=== PATIENT | male | born 1945 | race Caucasian/White ===

== ENCOUNTER → 2016-08-20 | Outpatient (CLI) | payer OTHER, MEDICARE | LOC: BHCLAF 10:45 | PROVIDERS: ATTEND Internal Medicine Cardiovascular Disease | DX: G45.9 Transient cerebral ischemic attack, unspecified (principal) | CPT/HCPCS: 93306-PO ==

== ENCOUNTER 2018-06-18 02:55 | Emergency (ER) | payer OTHER, MEDICARE ==
--- NOTE | 2018-06-18 03:02 | EDPHY ---
H & P Stated Complaint: Chest Pain Time Seen by Provider: 06/18/18 03:02 HPI/ROS: HPI CHIEF COMPLAINT: Chest pressure HISTORY OF PRESENT ILLNESS: 73-year-old male, presents emergency room chest pressure. Patient has a history of osteoarthritis, hypothyroidism, abdominal aortic aneurysm, presents emergency room with chest pressure. Mainly left side does not radiate anywhere. Feels very anxious about this. Denies pleuritic pain. States he had a little bit of this discomfort around 4:00 p.m. Today but that went away he went to bed around 11:00 p.m. Tonight and then woke up around 2:00 a.m. With worsening left-sided chest pressure. This caused him great anxiety and decided come the emergency room by private vehicle company by his . Still has the pressure in left side of his chest. Denies shortness of breath, denies pleuritic pain, denies nausea or vomiting. Also complains of upper back discomfort. Tightness. Did state that he lifted heavy boxes and put away for storage today. Unclear if he injured himself. Past Medical History: Osteoarthritis, AAA, dehydration, hypothyroidism Past Surgical History: Multiple orthopedic surgeries. Social History: Denies drugs alcohol tobacco. Family History: Noncontributory ROS REVIEW OF SYSTEMS: 10 Systems were reviewed and negative with the exception of the elements mentioned in the history of present illness. Exam Constitutional triage nursing summary reviewed, vital signs reviewed, awake/ alert. Eyes normal conjunctivae and sclera, EOMI, PERRLA. HENT normal inspection, atraumatic, moist mucus membranes, no epistaxis, neck supple/ no meningismus, no raccoon eyes. Respiratory clear to auscultation bilaterally, normal breath sounds, no respiratory distress, no wheezing. Cardiovascular rate normal, regular rhythm, no murmur, no edema, distal pulses normal. Gastrointestinal soft, non-tender, no rebound, no guarding, normal bowel sounds, no distension, no pulsatile mass. Genitourinary no CVA tenderness. Musculoskeletal no midline vertebral tenderness, full range of motion, no calf swelling, no tenderness of extremities, no meningismus, good pulses, neurovascularly intact. Skin pink, warm, & dry, no rash, skin atraumatic. Neurologic awake, alert and oriented x 3, AAOx3, moves all 4 extremities equally, motor intact, sensory intact, CN II-XII intact, normal cerebellar, normal vision, normal speech. Psychiatric normal mood/affect. Heme/Lymph/Immune no lymphadenopathy. Differential diagnosis includes but is not limited to: ACS, atypical chest pain , pneumothorax, pneumonia, pulmonary embolism, aortic dissection, congestive heart failure, tumor, musculoskeletal pain, esophageal pain, GERD, peptic ulcer disease, pancreatitis Medical Decision Making: Plan for this patient IV establishment, full copy machine operator obtain EKG, rule out acute coronary syndrome, troponin, electrolytes, given his AAA history will proceed with CT angiogram chest. Re-evaluation: EKG interpretation by me on record in [facility] system. Impression time of EKG 3:06 a.m., sinus rhythm rate of 80 without any signs of acute ischemia no ST elevation no ST depression. Full-dose aspirin given. CT angiogram of the chest fax me by direct Radiology at 4:[address] angiogram of the chest for pulmonary embolism. EKG is stable from previous EKG dated 08/20/[address] angiogram chest reviewed negative for PE Plan for admission the hospital for chest pain evaluation Patient is chest pain-free at this time I have consult the hospitalist service Dr. Goodwin, agrees to admit. patient agrees for admission, further eval. Source: Patient - Personal History Current Tetanus/Diphtheria Vaccine: Yes Current Tetanus Diphtheria and Acellular Pertussis (TDAP): Yes - Medical/Surgical History Hx Asthma: No Hx Chronic Respiratory Disease: No Hx Diabetes: No Hx Cardiac Disease: No Hx Renal Disease: No Hx Cirrhosis: No Hx Alcoholism: No Hx HIV/AIDS: No Hx Splenectomy or Spleen Trauma: No Other PMH: Hypothyroid, BPH, arthritis,AAA; 6 broken ribs;tonsilectomy;deviated septum;syncopal - Social History Smoking Status: Never smoked Constitutional: Initial Vital Signs Temperature (C) 36.5 C 06/18/18 02:58 Heart Rate 87 06/18/18 02:58 Respiratory Rate 20 06/18/18 02:58 Blood Pressure 147/96 H 06/18/18 02:58 O2 Sat (%) 96 06/18/18 02:58 O2 Delivery Mode Room Air Allergies/Adverse Reactions: No Known Allergies Allergy (Verified 12/30/14 10:37) Home Medications: Medication Instructions Recorded Finasteride [Proscar 5 MG (*)] 5 mg PO DAILY 08/17/15 Levothyroxine [Synthroid 25 mcg 25 mcg PO DAILY06 08/17/15 (*)] Omeprazole 20 mg PO DAILY 08/17/15 Medical Decision Making - Data Points Laboratory Results: Laboratory Results 06/18/18 03:05 06/18/18 03:05 Medications Given: Discontinued Medications Aspirin (Aspirin) 325 mg PO EDNOW ONE Stop: 06/18/18 03:13 Last Admin: 06/18/18 03:15 Dose: 325 mg Sodium Chloride (Ns) 1,000 mls @ 0 mls/hr IV EDNOW ONE; Wide Open PRN Reason: Protocol Stop: 06/18/18 03:04 Last Admin: 06/18/18 03:15 Dose: 1,000 mls Point of Care Test Results: Chemistry 06/18/18 03:08 POC Troponin I 0.00 ng/mL ng/mL (0.00-0.08) Departure - Departure Disposition: [facility] Inpatient Acute Clinical Impression: Chest pain Qualifiers: Chest pain type: unspecified Qualified Code(s): R07.9 - Chest pain, unspecified Condition: Fair
[2018-06-18] MEDS ORDERED: NS 1,000 ML IV ONE (03:03)
[2018-06-18] MEDS ORDERED: ASPIRIN 81 MG CHEWABLE TAB ONE (03:09)
[2018-06-18] MEDS ORDERED: ASPIRIN 325 MG TAB PO ONE (03:12)
[2018-06-18 03:17] LABS: PLATELET COUNT 268 10^3/uL (150-400)
[2018-06-18 03:25] LABS: INR 0.98 (0.83-1.16); PROTIME(PATIENT) 13.2 SEC (12.0-15.0)
[2018-06-18] MEDS ORDERED: IOHEXOL 300 mgI/ML (OMNIPAQUE) 150 ML BTL IV ONE (03:39)
[2018-06-18] MEDS ORDERED: ONDANSETRON DISINTEGRATING 4 MG TAB PO PRN (05:17)
[2018-06-18] MEDS ORDERED: ACETAMINOPHEN 325 MG TAB PO PRN (05:17)
[2018-06-18] MEDS ORDERED: HYDROCODONE/APAP 5/325 TAB PO PRN (05:17)
[2018-06-18] MEDS ORDERED: ONDANSETRON 4 MG/2 ML VIAL IVP PRN (05:17)
[2018-06-18] MEDS ORDERED: NITROGLYCERIN 0.4 MG BTL SL PRN (05:19)
[2018-06-18] MEDS ORDERED: KETOROLAC 15 MG/1 ML SDV IVP ONE (06:24)
[2018-06-18] MEDS ORDERED: KETOROLAC 15 MG/1 ML SDV IVP PRN (06:25)
[2018-06-18] MEDS ORDERED: METHYL SALICYLATE/MENTHOL OINTMENT TP PRN (06:26)
--- NOTE | 2018-06-18 06:35 | PDGENHP ---
History and Physical - Chief Complaint Left chest pain and neck spasm - History of Present Illness Source-patient provides history appears reliable. EMR was reviewed and case discussed with ED provider. HPI-this is a very pleasant 73-year-old gentleman with a past medical history significant for hypothyroidism, BPH, OA, AAA who presents emergency department early this morning for persistent left chest wall pain. Patient reports that approximately 11:00 p.m. He woke up from sleep because he could not get comfortable. He complained of a chest pain and pressure type sensation in is the left medial chest and moved up just below his clavicle. Pain did move around worse with any kind of movement or shift and position. Patient denies any associated diaphoresis. With the persistence and his pain he did eventually develop some nausea without any vomiting just prior to arrival to the ED. Patient was also complaining of increasing neck pain and spasms posterior neck which he has been dealing with for many months now. He has been seeing a massage therapist and recently had a 0.5 hr massage as session but did help this. He denies any pain radiating down to his arm. He denies any fevers or chills. Earlier in the day patient reports that he had been putting back is artificial [place] tree lifting a some of the boxes upwards of 30 lb. Patient does not feel that this is anything increasingly strenuous. Patient denies any family history of [place] or early cardiac . He states that he underwent a cardiac catheterization toward the end of summer beginning of fall 2017 which was negative. He subsequently continued to have dyspnea on exertion particularly with elevation hiking and was referred subsequently to a product development coordinator. Patient reports that he did not developed any shortness of breath during this event but he was increasingly anxious and concerned about his symptoms and felt like he was hyperventilating a little. History Information - Allergies/Home Medication List Allergies/Adverse Reactions: No Known Allergies Allergy (Verified 12/30/14 10:37) Home Medications: Finasteride [Proscar 5 MG (*)] 5 mg PO DAILY 08/17/15 [Last Taken 08/17/15] Levothyroxine [Synthroid 25 mcg (*)] 25 mcg PO DAILY06 08/17/15 [Last Taken 07/29] Omeprazole 20 mg PO DAILY 08/17/15 [Last Taken 08/17/15] I have personally reviewed and updated: family history, medical history, social history, surgical history - Past Medical History Additional medical history: Hypothyroidism, BPH, osteoarthritis, chronic neck spasm, AAA, history rib fracture, syncope - Surgical History Additional surgical history: Tonsillectomy adenoidectomy, multiple orthopedic surgeries, 01/02/2018 patient underwent cardiac catheterization which he reports was normal. - Family History Additional family history: Negative for cardiac disease or early cardiac . - Social History Smoking Status: Never smoked Alcohol Use: None Drug Use: None Additional social history: Patient is lives with his . His daughter is a local psychiatrist. Cor status-full. Review of Systems Review of Systems: ROS: 10pt was reviewed & negative except for what was stated in HPI & below Constitutional: Reports: no symptoms EENMT: Reports: no symptoms Cardiac: Reports: chest pain. Denies: edema, lightheadedness, palpitations Respiratory: Reports: no symptoms Gastrointestinal: Reports: nausea. Denies: vomitting, abdominal pain Genitourinary: Reports: no symptoms Muscolosketal: Reports: muscle pain, muscle stiffness, neck pain Skin: Reports: no symptoms Neurological: Reports: no symptoms Hematologic/Lymphatic: Reports: no symptoms Physical Exam Physical Exam: Selected Entries 06/18/18 02:58 Blood Pressure Automatic Method Heart Rate 87 Respiratory 20 Rate O2 Sat (%) 96 Temperature (C) 36.5 C Blood Pressure 147/96 H Mean Arterial 113 H Pressure (MAP) O2 Delivery Room Air Mode Temperature Oral Source Temp Pulse Resp BP Pulse Ox 36.5 C 82 16 112/69 94 06/18/18 02:58 06/18/18 05:31 06/18/18 05:31 06/18/18 05:31 06/18/18 05:31 Constitutional: no apparent distress, other (NAD. Pleasant elderly gentleman is lying quietly in bed. Pleasant and cooperative. Does appear uncomfortable when he moves. He has some limitations in sitting up independently.) Eyes: PERRL, anicteric sclera, EOMI, scleral injection Ears, Nose, Mouth, Throat: dry mucous membranes, No poor dentition Cardiovascular: regular rate and rhythym, no murmur, rub, or gallop, No edema Peripheral Pulses: 1+: dorsalis-pedis (R), dorsalis-pedis (L) Respiratory: no respiratory distress, no rales or rhonchi, clear to auscultation , No expiratory wheeze, No inspiratory crackles, No respiratory distress Gastrointestinal: normoactive bowel sounds, soft, non-tender abdomen, no palpable masses, No distension Genitourinary: no bladder tenderness, No tineo in urethra Skin: warm, normal color, no rashes or abrasions Musculoskeletal: no muscle tenderness, pain with ROM, generalized weakness Neurologic: AAOx3, sensation intact bilaterally, other (Grossly nonfocal exam.) , No facial droop Psychiatric: interacting appropriately, not anxious, not encephalopathic, thought process linear Lab Data & Imaging Review 06/18/18 03:05 06/18/18 03:05 WBC 9.60 10^3/uL (3.80-9.50) H 06/18/18 03:05 RBC 5.54 10^6/uL (4.40-6.38) 06/18/18 03:05 Hgb 17.6 g/dL (13.7-17.5) H 06/18/18 03:05 Hct 49.8 % (40.0-51.0) 06/18/18 03:05 MCV 89.9 fL (81.5-99.8) 06/18/18 03:05 MCH 31.8 pg (27.9-34.1) 06/18/18 03:05 MCHC 35.3 g/dL (32.4-36.7) 06/18/18 03:05 RDW 12.6 % (11.5-15.2) 06/18/18 03:05 Plt Count 268 10^3/uL (150-400) 06/18/18 03:05 MPV 9.4 fL (8.7-11.7) 06/18/18 03:05 Neut % (Auto) 52.4 % (39.3-74.2) 06/18/18 03:05 Lymph % (Auto) 32.1 % (15.0-45.0) 06/18/18 03:05 [place] % (Auto) 10.2 % (4.5-13.0) 06/18/18 03:05 Eos % (Auto) 4.5 % (0.6-7.6) 06/18/18 03:05 Baso % (Auto) 0.5 % (0.3-1.7) 06/18/18 03:05 Nucleat RBC Rel Count 0.0 % (0.0-0.2) 06/18/18 03:05 Absolute Neuts (auto) 5.03 10^3/uL (1.70-6.50) 06/18/18 03:05 Absolute Lymphs (auto) 3.08 10^3/uL (1.00-3.00) H 06/18/18 03:05 Absolute Monos (auto) 0.98 10^3/uL (0.30-0.80) H 06/18/18 03:05 Absolute Eos (auto) 0.43 10^3/uL (0.03-0.40) H 06/18/18 03:05 Absolute Basos (auto) 0.05 10^3/uL (0.02-0.10) 06/18/18 03:05 Absolute Nucleated RBC 0.00 10^3/uL (0-0.01) 06/18/18 03:05 Immature Gran % 0.3 % (0.0-1.1) 06/18/18 03:05 Immature Gran # 0.03 10^3/uL (0.00-0.10) 06/18/18 03:05 PT 13.2 SEC (12.0-15.0) 06/18/18 03:05 INR 0.98 (0.83-1.16) 06/18/18 03:05 APTT 27.7 SEC (23.0-38.0) 06/18/18 03:05 Sodium 140 mEq/L (135-145) 06/18/18 03:05 Potassium 4.0 mEq/L (3.5-5.2) 06/18/18 03:05 Chloride 113 mEq/L (97-110) H 06/18/18 03:05 Carbon Dioxide 16 mEq/l (22-31) L 06/18/18 03:05 Anion Gap 11 mEq/L (6-14) 06/18/18 03:05 BUN 16 mg/dL (7-23) 06/18/18 03:05 Creatinine 1.4 mg/dL (0.7-1.3) H 06/18/18 03:05 Estimated GFR 50 06/18/18 03:05 Glucose 125 mg/dL (70-100) H 06/18/18 03:05 Calcium 9.4 mg/dL (8.5-10.4) 06/18/18 03:05 POC Troponin I 0.00 ng/mL (0.00-0.08) 06/18/18 03:08 NT-Pro-B Natriuret Pep 39 pg/mL (0-125) 06/18/18 03:05 Imaging Review: Chest x-ray image reviewed myself right total shoulder replacement. Chest x- ray without any acute cardiopulmonary changes. Visualized and Interpreted Chest x-ray results: Yes Chest X-Ray results: no infiltrate EKG additional interpertation: NSR in the 80s. T-wave inversion lead [address] elevations. QTC is 428. Assessment & Plan Assessment: Pleasant 73-year-old gentleman with past medical history significant for hypothyroidism, BPH, osteoarthritis, AAA who presents emergency department today with complaints of left-sided chest wall pain. #Chest pain (Acute) - musculoskeletal in etiology. Is reproducible particularly along the scalenes and intercostal muscles. Additionally patient does have some muscle spasms occurring in the suboccipital region as well as the upper traps. Initial troponin is negative. EKG without any acute changes. After further discussion with the patient he notes that he did undergo cardiac catheterization in December 2017 which she reports is completely normal. Will plan to provide supportive care with heating pad, topical menthol. Patient is not a candidate for anti-inflammatory medications at this time as his creatinine is acutely elevated from baseline. Patient received IV fluids in the emergency department 1 L he will receive continuous rate. Check a CK given patient's report of acute activity, acute kidney injury and apparent dehydration. #Acute kidney injury - patient's creatinine currently 1.5 previously 0.9. Continue IV fluid hydration. #Elevated blood pressures without history of hypertension - patient reports admits to some increased anxiety and stress related to his symptoms. Blood pressures have normalized since his arrival. Would follow up with PCP. Chronic medical issues #Hypothyroidism - the patient should resume levothyroxine after discharge. #BPH - continue tamsulosin. #Osteoarthritis - supportive care. #AAA - blood pressure management p.r.n. FEN - continue with IV fluids. Checking a CK as patient has acute kidney injury and does appear little bit dry. Electrolytes otherwise acceptable. Diet as tolerated. PPX - SCDs. Holding anticoagulation anticipating short hospital stay. COR - full Disposition - anticipate a repeat troponin will be negative. Supportive care as noted above her patient's musculoskeletal symptoms. Anticipate the patient can be discharged from the emergency department pending the repeat troponin.
[2018-06-18 06:48] LABS: CREATINE KINASE 141 IU/L (0-224)
[2018-06-18 07:42] VITALS: BP 118/70
== END 2018-06-18 08:21 | disposition home or self-care (01) ==
LOC: UNDOADMOB 04:48
DX: R07.9 Chest pain, unspecified (principal); E86.9 Volume depletion, unspecified; E03.9 Hypothyroidism, unspecified
CPT/HCPCS: 71045; 71275; 96360; 99285; Q9967; 84484-ER

== ENCOUNTER 2018-06-23 02:01 | Emergency (ER) | payer OTHER, MEDICARE ==
[2018-06-23] MEDS ORDERED: NS 1,000 ML IV ONE (02:05)
[2018-06-23] MEDS ORDERED: ONDANSETRON 4 MG/2 ML VIAL IVP ONE (02:05)
[2018-06-23] MEDS ORDERED: HYDROmorphONE/DILAUDID 1 MG/ML INJ ONE (02:10)
[2018-06-23] MEDS ORDERED: HYDROmorphONE/DILAUDID 2 MG/ML INJ IVP ONE (02:24)
--- NOTE | 2018-06-23 02:38 | EDPHY ---
H & P Stated Complaint: RLQ and R flank pain Time Seen by Provider: 06/23/18 02:20 HPI/ROS: HPI The patient presents with right lower quadrant abdominal pain which began at about 5:00 p.m. Tonight and has been unrelenting ever since. The pain begins in his right lower quadrant the radiates to his right flank and is associated with nausea. It is moderate in severity. He has no prior history of similar. He was in the emergency department about 1 week ago for chest pain and was discharged. He completely recovered from that.. REVIEW OF SYSTEMS 10 systems were reviewed and negative with the exception of the elements mentioned in the history of present illness. PMHx: Infrarenal AAA being monitored, no treatment so far Soc Hx: Lives at home, here with his PHYSICAL General Appearance: Alert, no distress Eyes: Pupils equal and round no pallor or injection ENT, Mouth: Mucous membranes moist Respiratory: There are no retractions, lungs are clear to auscultation Cardiovascular: Regular rate and rhythm Gastrointestinal: Abdomen is soft and tender in the right lower quadrant, no masses, bowel sounds normal Neurological: A&O, moves all extremities Skin: Warm and dry, no rashes Musculoskeletal: Neck is supple non tender Extremities: symmetrical, full range of motion Psychiatric: Patient is oriented X 3, there is no agitation Source: Patient Exam Limitations: No limitations - Personal History Current Tetanus Diphtheria and Acellular Pertussis (TDAP): Yes - Medical/Surgical History Hx Asthma: No Hx Chronic Respiratory Disease: No Hx Diabetes: No Hx Cardiac Disease: No Hx Renal Disease: No Hx Cirrhosis: No Hx Alcoholism: No Hx HIV/AIDS: No Hx Splenectomy or Spleen Trauma: No Other PMH: Hypothyroid, BPH, arthritis,AAA; 6 broken ribs;tonsilectomy;deviated septum;syncopal - Social History Smoking Status: Never smoked Constitutional: Initial Vital Signs Temperature (C) 36.7 C 06/23/18 02:09 Heart Rate 76 06/23/18 02:09 Respiratory Rate 16 06/23/18 02:09 Blood Pressure 146/109 H 06/23/18 02:09 O2 Sat (%) 97 06/23/18 02:09 O2 Delivery Mode Room Air O2 (L/minute) 2 Allergies/Adverse Reactions: No Known Allergies Allergy (Verified 06/23/18 02:09) Home Medications: Medication Instructions Recorded Finasteride [Proscar 5 MG (*)] 5 mg PO DAILY 08/17/15 Levothyroxine [Synthroid 25 mcg 25 mcg PO DAILY06 08/17/15 (*)] Omeprazole 20 mg PO DAILY 08/17/15 Aspirin 06/23/18 Cbd 06/23/18 Ondansetron Odt [Zofran Odt 4 mg 4 mg PO Q4 PRN #10 tab 06/23/18 (*)] oxyCODONE HCL/ACETAMINOPHEN 1 each PO Q6H PRN #8 tablet 06/23/18 [Percocet 5-325 mg Tablet] Medical Decision Making - Diagnostics Imaging Results: CT abdomen pelvis with IV contrast demonstrates 4 mm mildly obstructing calculus in the distal right ureter approximately 3 cm proximal to the UVJ, wall thickening of the distal esophagus with focal edema or small fluid collection within the esophageal wall, consider esophagitis and neoplasm. This is read by direct Radiology. Imaging: Discussed imaging studies w/ pastry finisher Radiologist, I viewed and interpreted images myself Procedures: Bedside aorta Ultrasound- performed and interpreted by me. Indication: History of AAA with abdominal pain Findings: AAA measures approximately 3-4 cm in diameter, no sign of rupture or dissection, no intra-abdominal free fluid Impression: Stable AAA Differential Diagnosis: 73-year-old male with known AAA presents with right lower quadrant abdominal pain since 5:00 p.m. Tonight associated with nausea. Here, he is slightly hypertensive, he is tender in his right lower quadrant with minimal right-sided flank tenderness. Differential diagnosis includes ruptured AAA, appendicitis, pyelonephritis, ureterolithiasis. Patient is given IV fluids and pain medication immediately upon arrival. Bedside ultrasound was performed by me which did not demonstrate any intra- abdominal free fluid, sign of AAA rupture. Patient's symptoms improved significantly. CT scan was obtained which did show distal 4 mm stone in the right ureter with mild hydronephrosis. His UA was completely normal. He did have some issues with hypoxia here which is likely related to Dilaudid which he received. This improved over time. He was able to tolerate fluids without difficulty. He will be discharged home. His CT scan did show an abnormality within his esophagus. He can follow up with his primary care doctor for this. - Data Points Laboratory Results: Laboratory Results 06/23/18 02:30 06/23/18 02:30 Medications Given: Discontinued Medications Hydromorphone HCl (Dilaudid) 1 mg IVP EDNOW ONE Stop: 06/23/18 02:25 Last Admin: 06/23/18 02:27 Dose: 1 mg Sodium Chloride (Ns) 1,000 mls @ 0 mls/hr IV EDNOW ONE; Wide Open PRN Reason: Protocol Stop: 06/23/18 02:06 Last Admin: 06/23/18 02:26 Dose: 1,000 mls Ketorolac Tromethamine (Toradol) 30 mg IVP EDNOW ONE Stop: 06/23/18 03:12 Last Admin: 06/23/18 03:25 Dose: 30 mg Ondansetron HCl (Zofran) 4 mg IVP EDNOW ONE Stop: 06/23/18 02:06 Last Admin: 06/23/18 02:26 Dose: 4 mg Ondansetron HCl (Zofran Odt 4 Mg Prepack#2) 1 btl TAKEHOME EDNOW ONE Stop: 06/23/18 04:59 Last Admin: 06/23/18 06:15 Dose: 1 btl Oxycodone/Acetaminophen (Percocet 5/325mg Prepack#4) 1 btl TAKEHOME EDNOW ONE Stop: 06/23/18 04:59 Last Admin: 06/23/18 06:16 Dose: 1 btl Departure - Departure Disposition: Home, Routine, Self-Care Clinical Impression: Ureterolithiasis, Esophageal abnormality Condition: Good Instructions: Hydrocodone/Acetaminophen (By mouth), Ondansetron (By mouth), Renal Colic (ED) Additional Instructions: 1. Take Ibuprofen or Motrin 600 mg by mouth three times a day. 2. Take Percocet for severe pain 3. Zofran as needed for nausea 4. Strain urine as directed 5. Return to the Emergency Department for intractable pain, fever or vomiting. 6. Followup with the urologist you have been referred to for unimproved symptoms. Referrals: Dania Luque MD [Primary Care Provider] - As per Instructions Erica Aviles MD [Medical Doctor] - As per Instructions Prescriptions: Ondansetron Odt [Zofran Odt 4 mg (*)] 4 mg PO Q4 PRN #10 tab PRN Reason: Nausea/Vomiting, Can'T Take Po oxyCODONE HCL/ACETAMINOPHEN [Percocet 5-325 mg Tablet] 1 each PO Q6H PRN #8 tablet PRN Reason: Pain, Breakthrough
[2018-06-23 02:43] LABS: PLATELET COUNT 273 10^3/uL (150-400)
[2018-06-23] MEDS ORDERED: KETOROLAC 30 MG/1 ML SDV IVP ONE (03:11)
[2018-06-23] MEDS ORDERED: IOHEXOL 300 mgI/ML (OMNIPAQUE) 150 ML BTL IV ONE (03:26)
[2018-06-23] MEDS ORDERED: OXYCODONE/APAP 5/325MG PREPACK#4 BTL TAKEHOME ONE (04:58)
[2018-06-23] MEDS ORDERED: ONDANSETRON 4MG PREPACK#2 BTL TAKEHOME ONE (04:58)
[2018-06-23 06:32] VITALS: BP 123/74
== END 2018-06-23 06:32 | disposition home or self-care (01) ==
DX: N13.0 Hydronephrosis with ureteropelvic junction obstruction (principal); K22.9 Disease of esophagus, unspecified; I72.2 Aneurysm of renal artery; E03.9 Hypothyroidism, unspecified; N40.0 Benign prostatic hyperplasia without lower urinary tract symptoms; E86.9 Volume depletion, unspecified
CPT/HCPCS: 74177; 93976; 96361; 96374; 96375; 99285; J1170; J1885; J2405; Q9967

== ENCOUNTER → 2018-07-14 | Outpatient (CLI) | payer OTHER, MEDICARE | LOC: BMCIMAGING 16:44 ==